=== PATIENT | female | born 1950 | race Caucasian/White ===

== ENCOUNTER → 2024-01-06 09:10 | Outpatient (REF) | payer OTHER, SELFPAY ==
[2024-01-06 11:54] LABS: % Basophils 0.6 % (0-2); % Eosinophils 1.4 % (0-6); % Immature Granulocytes 0.3 % (0-0.5); % Lymphocytes 15.6 % (20.5-51.1); % Monocytes 6.6 % (1.7-9.3); % Neutrophils 75.5 % (42.2-75.2); Absolute Eosinophils 0.1 10^3/uL (0-0.7); Absolute Lymphocytes 1.1 10^3/uL (1.2-3.4); Absolute Monocytes 0.5 10^3/uL (0.1-0.6); Absolute Neutrophils 5.5 10^3/uL (1.4-6.5); Hematocrit 39.4 % (37.0-47.0); Hemoglobin 12.7 g/dL (12.0-16.0); Mean Corp Hgb Conc. 32.2 g/dL (33.0-37.0); Mean Corpuscular Hgb 27.4 pg (27.0-31.0); Mean Corpuscular Volume 85.1 fL (81.0-99.0); Nucleated Red Blood Cells % 0 %; Platelet Count 371 10^3/uL (130-400); Red Blood Cell Count 4.63 10^6/uL (4.20-5.40); Red Cell Dist. Width 14.9 % (11.5-14.5); White Blood Cell Count 7.3 10^3/uL (4.8-10.8)
[2024-01-06 12:31] LABS: ALT (SGPT) 16 U/L (0-35); AST (SGOT) 23 U/L (14-36); Albumin 4.2 g/dl (3.5-5.0); Alkaline Phosphatase 92 U/L (38-126); Blood Urea Nitrogen 27 mg/dl (7-17); Calcium 9.8 mg/dl (8.4-10.2); Carbon Dioxide 28 mmol/L (22-30); Chloride 100 mmol/L (98-107); Glucose 89 mg/dl (70-99); HDL Cholesterol 100 mg/dl; LDL Cholesterol, Calculated 64 mg/dl; Potassium 4.4 mmol/L (3.5-5.1); Sodium 135 mmol/L (135-145); Total Bilirubin 0.5 mg/dl (0.2-1.3); Total Cholesterol 175 mg/dl (50-199); Total Protein 6.9 g/dl (6.3-8.2); Triglyceride 58 mg/dl (10-149); Very Low Density Lipoprotein 11 mg/dl (0-30); eGFR > 60.00
[2024-01-06 12:48] LABS: TSH Reflex To Free T4 0.77 uIU/ml (0.47-4.68)
== END ==
LOC: REG 09:10
PROVIDERS: ATTENDING PHYSICIAN Family Medicine
DX: I10 Essential (primary) hypertension (principal); D64.9 Anemia, unspecified; E66.3 Overweight
CPT/HCPCS: 36415; 80053; 80061; 84443; 85025

== ENCOUNTER → 2025-08-04 09:32 | Outpatient (REF) | payer OTHER, SELFPAY ==
[2025-08-04 09:59] LABS: Hematocrit 38.3 % (37.0-47.0); Hemoglobin 12.7 g/dL (12.0-16.0); Mean Corp Hgb Conc. 33.2 g/dL (33.0-37.0); Mean Corpuscular Volume 80.8 fL (81.0-99.0); Nucleated Red Blood Cells % 0 %; Platelet Count 380 10^3/uL (130-400); Red Cell Dist. Width 14.9 % (11.5-14.5)
[2025-08-04 10:33] LABS: ALT (SGPT) 19 U/L (0-35); AST (SGOT) 22 U/L (14-36); Albumin 4.2 g/dl (3.5-5.0); Alkaline Phosphatase 99 U/L (38-126); Blood Urea Nitrogen 23 mg/dl (7-17); Calcium 10.3 mg/dl (8.4-10.2); Carbon Dioxide 29 mmol/L (22-30); Chloride 101 mmol/L (98-107); Glucose 100 mg/dl (70-99); Potassium 4.5 mmol/L (3.5-5.1); Sodium 133 mmol/L (135-145); Total Protein 7.1 g/dl (6.3-8.2); Very Low Density Lipoprotein 13 mg/dl (0-30); eGFR > 60.00
[2025-08-04 10:41] LABS: HDL Cholesterol 127 mg/dl; LDL Cholesterol, Calculated 63 mg/dl
== END ==
LOC: REG 09:32
PROVIDERS: ATTENDING PHYSICIAN Family Medicine
DX: Z00.00 Encounter for general adult medical examination without abnormal findings (principal)
CPT/HCPCS: 36415; 80053; 80061; 84443; 85025